=== PATIENT | male | born 1935 | race Caucasian/White ===

== ENCOUNTER 2024-12-29 08:50 | Emergency (ER) | payer MEDICARE, SELFPAY ==
--- NOTE | 2024-12-29 08:58 | ED_ITS ---
HPI - Skin/Abscess/Foreign Bdy General Chief complaint: Skin/Abscess/Foreign Body Stated complaint: Hives Time Seen by Provider: 12/29/24 08:52 Source: patient and RN notes reviewed Mode of arrival: ambulatory Limitations: no limitations History of Present Illness HPI narrative: 89-year-old male presents to the [facility] with hives. States that started approximately 2100 last night. Ate some different than normal food and hives started. Denies any lip or tongue swelling. Son had given him 50 mg of Benadryl at 7:00 a.m. this morning. Hives has improved. Describes him as being very itchy. Itchiness has subsided since taken Benadryl. Denies any chest pain, shortness of breath. No lip or tongue swelling. Related Data Home Medications ?Medication ?Instructions ?Recorded ?Confirmed ?Last Taken ?Type apixaban 5 mg tablet (Eliquis) mg 12/29/24 Unknown Hi story dapagliflozin propanediol 10 mg mg 12/29/24 Unknown H istory tablet (Farxiga) gabapentin 100 mg capsule mg 12/29/24 Unknown History losartan 50 mg tablet mg 12/29/24 Unknown History [id number] acid 0.4 1 tablet PO DAILY 12/29/24 Unknown History mg-lycopene 300 mcg-lutein 250 mcg tablet (Century Adults 50 Plus) ranolazine 500 mg tablet,extended mg PO 12/29/24 Unkn own History release,12 hr sildenafil 100 mg tablet (Viagra) 100 mg PO DAILY PRN sexual activity 12/29/24 Unknown History simvastatin 20 mg tablet mg 12/29/24 Unknown History Allergies Allergy/AdvReac Type Severity Reaction Status Date / Time No Known Allergies Allergy Verified 12/29/24 09:17 Review of Systems Review of Systems: All systems reviewed & are unremarkable except as noted in HPI and below Constitutional: Constitutional: Reports no additional constitutional comp laints ENT: Reports system reviewed and no additional complaints, except as documented Cardiovascular: Cardiovascular: Reports no additional cardiovascular complaints, Denies chest pain and Denies dyspnea Respiratory: Respiratory: Reports no additional respiratory complaints, Denies chest congestion, Denies cough and Denies dyspnea Musculoskeletal: Musculoskeletal: Reports no additional musculoskeletal co mplaints Integumentary/Breasts: Skin/Breast: Reports as per HPI PMFSH Comments At the time of my signature, I reviewed and agree with the nursing past medical, surgical, social, and family history. There is no relevant family history pertinent to the patient complaint. Exam Const: General: cooperative, healthy appearing, comfortable, no acute distress, well developed, alert and well nourished Nutritional Appearance: well nourished and obese Orientation/consciousness: patient oriented x3 Limitations: no limitations HENMT: Head: normal to inspection Mouth: Yes Normal oral and palatal mucosa present, Yes lip normal, Yes tongue normal and Yes moist mucous membranes Eyes: General: appearance normal, both eyes and all related structures Ali gnment and Position: alignment normal Neck: Neck: normal visual inspection, full ROM, no lymphadenopathy and no meningeal signs Chest: Chest palpation & inspection: normal inspection of the chest Resp: Effort & Inspection: normal respiratory effort and able to speak in complete sentences Auscultation: clear to auscultation bilaterally, no crackles, no rales, no rhonchi and no wheezes Cardio: Rate: regular rate Skin: General skin exam: normal color and no rashes or lesions noted Other: Left side of abdomen large hives, smaller hives to the bilateral thighs. Neuro: General: patient oriented x3, gait normal, moves all extremities and no meningeal signs Cognition (Neuro): normal cognition Speech: normal speech Gait exam (Neuro): Normal gait present Extrem: General: normal to inspection, full ROM, capillary refill normal and normal gait Psych: Appearance: grossly normal and well kempt Mental Status: mental status grossly normal Speech and movement: Normal speech and movement present and Clear speech present Affect: normal affect Attitude: cooperative Course Course Level of Care: Express Care Visit Vital Signs Vital signs: Vital Signs Temperature 97.2 F L 12/29/24 09:07 Pulse Rate 76 12/29/24 09:07 Respiratory Rate 16 12/29/24 09:07 Blood Pressure 123/75 12/29/24 09:07 Pulse Oximetry 98 12/29/24 09:07 Oxygen Delivery Room Air 12/29/24 09:07 Temperature 97.2 F L 12/29/24 09:07 Pulse Rate 76 12/29/24 09:07 Respiratory Rate 16 12/29/24 09:07 Blood Pressure 123/75 12/29/24 09:07 Pulse Oximetry 98 12/29/24 09:07 Oxygen Delivery Room Air 12/29/24 09:07 Reviewed MDM - Skin/Abscess/Foreign Bdy MDM Narrative Medical decision making narrative: Patient presents with son, hives that have improved since given Benadryl this morning. Patient in no acute distress Patient sitting comfortably in exam room. Nontoxic and vitals are stable Patient appropriate for outpatient treatment with OTC medications, prednisone. Discussed signs and symptoms to proceed to the emergency room which both patient and son verbalized understanding Discharge instructions reviewed with patient, as well as provided in writing per nursing staff. The instructions also include specific and strict return/GO TO THE ER as well as f/u information. All questions have been answered, and the patient deny any further questions with discharge and discharge plan. Some parts of this dictation were generated by voice recognition software and may contain typographical and/or grammatical inaccuracies. Differential Diagnosis Differential diagnosis: Likely abscess of skin or subcutaneous tissue, viral exanthem, urticaria, cellulitis, insect bites and contact dermatitis Critical Care Time Critical Care Time Critical Care Time: No Discharge Plan Discharge Clinical Impression: Urticaria Patient Disposition: Home Condition: Stable Instructions: Antibiotic Form, Urticaria (ED) Additional Instructions: The most important part of your care is follow up with Primary care provider. Take Benadryl 25 mg every 8 hours for itching Take Zyrtec every day Take Pepcid 20mg daily for 7 days Take the steroids starting this morning Avoid hot showers, Take cool showers. Hot showers will make rashes worse Apply cool compresses every 2-3 hours for 15 minutes Go to the ER for new or worsening symptoms such as shortness of breath. Patient Language: Sinhala Prescriptions: New prednisone 20 mg tablet 20 mg PO DAILY Qty: 5 0RF No Action losartan 50 mg tablet simvastatin 20 mg tablet gabapentin 100 mg capsule ranolazine 500 mg tablet extended release 12 hr PO Eliquis 5 mg tablet dapagliflozin propanediol [Farxiga] 10 mg tablet sildenafil [Viagra] 100 mg tablet 100 mg PO DAILY PRN (Reason: sexual activity) Rx Instructions: administer 30 minutes to 4 hours before activity Century Adults 50 Plus 0.4 mg-300 mcg- 250 mcg tablet 1 tablet PO DAILY Follow-up/Referrals: Alberto,Daniel Zaldivar MD [Primary Care Provider, Unknown] - 2 Weeks Clinical Impression: Urticaria Time of Disposition: 09:29
[2024-12-29 09:07] VITALS: BP 123/75; PULSE 76; RESP 16; TEMP 36.2; O2SAT 98
== END 2024-12-29 09:37 | disposition home or self-care (01) ==
PROVIDERS: Emergency Provider Nurse Practitioner; PCP Family Medicine
DX: L50.9 Urticaria, unspecified (principal); I48.91 Unspecified atrial fibrillation; G62.9 Polyneuropathy, unspecified; M19.90 Unspecified osteoarthritis, unspecified site; Z95.0 Presence of cardiac pacemaker; Z95.2 Presence of prosthetic heart valve
CPT/HCPCS: 99213; G0463